=== PATIENT | female | born 1940 | race Caucasian/White ===

== ENCOUNTER 2017-05-29 15:52 | Emergency (ER) | payer OTHER, MEDICAID ==
[~2017-05-29 15:52] MED LIST: ALENDRONAT70 MG/75 M PO; AMLODIPINE BESYL5 M1 PO; AMLODIPINE-BENAZEPRI PO; CALCIUM PO; CARVEDILOL6.25 M1 PO; COR6 PO; DIT5 PO; ECO81 PO; EFF75 PO; EST1 PO; FENOFIBRATE PO; LOP600 PO; MAPAP PO; NIT0.4 SL; PLA75 PO; PRO40 PO; RITE AID MELATON1 MG PO; SIMVASTATIN PO; SPECTRAVITE; SYN1 PO; SYNTHROID0.075 MG; [UNRECOGNIZED DRUG - OTHER] PO
[2017-05-29 16:50] LABS: CALCIUM 9.8 mg/dL (8.5-10.1); CARBON DIOXIDE 29.3 mmol/L (21-32); CHLORIDE SERUM 104 mmol/L (98-107); CREATININE SERUM 0.8 mg/dL (0.6-1.0); GLUCOSE SERUM 107 mg/dL (74-106); POTASSIUM SERUM 4.1 mmol/L (3.5-5.1); SODIUM SERUM 140 mmol/L (136-145)
[2017-05-29 18:13] VITALS: BP 118/75
== END 2017-05-29 18:13 | disposition home or self-care (01) ==
LOC: ED 15:52
PROVIDERS: Emergency Medicine
DX: K29.00 Acute gastritis without bleeding (principal); I10 Essential (primary) hypertension; M19.90 Unspecified osteoarthritis, unspecified site; Z79.899 Other long term (current) drug therapy
CPT/HCPCS: 36415; Q0162

== ENCOUNTER 2018-07-28 12:34 | Inpatient (IN) | payer OTHER, MEDICAID ==
[~2018-07-28] VITALS: Ht 152.4 cm; Wt 78.0 kg
[~2018-07-28 12:34] MED LIST changes: +ATORVASTATIN CA40 M1 PO; +BLACK COHOSH540 M1 PO; +CLOPIDOGREL75 M1 PO; +CVS CALCIUM PO; +LAC PO; +LEVAQUIN250 M1 PO; +LOSARTAN POTASS25 M1 PO; +MASON NATURAL1000 IU PO; +MECLIZINE HCL12.5 MG PO; +TRAMADOL HCL50 MG PO; +ZESTRIL5 MG PO
[2018-07-28 12:35] VITALS: Ht 152.4 cm; Wt 78.0 kg
[2018-07-28 14:10] LABS: BASOPHIL % 0.5 % (0-2); PLATELET COUNT 319 x10^3mcL (130-400); RED CELL DISTRIBUTION WIDTH 14.2 % (11.5-14.5)
[2018-07-28 14:25] LABS: CALCIUM 9.5 mg/dL (8.5-10.1); CARBON DIOXIDE 26.8 mmol/L (21-32); CHLORIDE SERUM 103 mmol/L (98-107); CREATININE SERUM 1.3 mg/dL (0.6-1.0); GLUCOSE SERUM 108 mg/dL (74-106); POTASSIUM SERUM 4.6 mmol/L (3.5-5.1); SODIUM SERUM 137 mmol/L (136-145)
[2018-07-28 14:30] LABS: ALKALINE PHOSPHATASE 64 U/L (46-116); ALT/SGPT 21 U/L (14-59); AST/SGOT 16 U/L (15-37); BILIRUBIN TOTAL 0.7 mg/dL (0.20-1.00); TOTAL PROTEIN, SERUM 6.6 g/dL (6.4-8.2)
[2018-07-28 14:31] LABS: ALBUMIN 2.7 g/dL (3.4-5.0)
[2018-07-28 16:56] VITALS: BP 128/51
[2018-07-28 17:32] VITALS: BP 128/57
[2018-07-28 17:33] VITALS: BP 118/46
[2018-07-28 19:56] LABS: microscopic required? NO
[2018-07-28 20:00] LABS: UA SPECIFIC GRAVITY <=1.005 (1.005-1.035); urine erythrocyte NEGATIVE (NEGATIVE)
[2018-07-28 20:34] VITALS: BP 126/52
[2018-07-29 05:56] VITALS: BP 136/65
[2018-07-29 07:07] LABS: ALBUMIN 2.6 g/dL (3.4-5.0); ALKALINE PHOSPHATASE 63 U/L (46-116); ALT/SGPT 22 U/L (14-59); AST/SGOT 15 U/L (15-37); BILIRUBIN TOTAL 0.3 mg/dL (0.20-1.00); CALCIUM 9.4 mg/dL (8.5-10.1); CARBON DIOXIDE 24.7 mmol/L (21-32); CHLORIDE SERUM 105 mmol/L (98-107); GLUCOSE SERUM 164 mg/dL (74-106); SODIUM SERUM 137 mmol/L (136-145); TOTAL PROTEIN, SERUM 6.8 g/dL (6.4-8.2)
[2018-07-29 09:45] VITALS: BP 157/61
[2018-07-29 12:00] VITALS: BP 133/61
[2018-07-29 16:15] VITALS: BP 147/57
[2018-07-29 20:52] VITALS: BP 148/78
[2018-07-30 05:56] VITALS: BP 156/68
[2018-07-30 07:07] LABS: BASOPHIL % 0 % (0-2); PLATELET COUNT 315 x10^3mcL (130-400); RED CELL DISTRIBUTION WIDTH 14.3 % (11.5-14.5)
[2018-07-30 07:27] LABS: ALBUMIN 2.7 g/dL (3.4-5.0); ALKALINE PHOSPHATASE 64 U/L (46-116); ALT/SGPT 25 U/L (14-59); AST/SGOT 17 U/L (15-37); BILIRUBIN TOTAL 0.22 mg/dL (0.20-1.00); CALCIUM 9.4 mg/dL (8.5-10.1); CARBON DIOXIDE 25.7 mmol/L (21-32); CHLORIDE SERUM 106 mmol/L (98-107); CREATININE SERUM 0.9 mg/dL (0.6-1.0); GLUCOSE SERUM 129 mg/dL (74-106); POTASSIUM SERUM 3.9 mmol/L (3.5-5.1); SODIUM SERUM 140 mmol/L (136-145); TOTAL PROTEIN, SERUM 6.8 g/dL (6.4-8.2)
[2018-07-30 09:05] VITALS: BP 155/76
[2018-07-30 12:10] VITALS: BP 151/65
[2018-07-30 17:00] VITALS: BP 141/59
[2018-07-30 21:35] VITALS: BP 136/64
[2018-07-31 05:59] VITALS: BP 171/71
[2018-07-31 07:12] LABS: BASOPHIL % 0 % (0-2); PLATELET COUNT 289 x10^3mcL (130-400); RED CELL DISTRIBUTION WIDTH 14.7 % (11.5-14.5)
[2018-07-31 07:19] LABS: ALKALINE PHOSPHATASE 53 U/L (46-116); ALT/SGPT 19 U/L (14-59); AST/SGOT 10 U/L (15-37); CALCIUM 8.9 mg/dL (8.5-10.1); CARBON DIOXIDE 21.7 mmol/L (21-32); CHLORIDE SERUM 108 mmol/L (98-107); CREATININE SERUM 0.9 mg/dL (0.6-1.0); GLUCOSE SERUM 132 mg/dL (74-106); MAGNESIUM 2.6 mg/dL (1.8-2.4); SODIUM SERUM 139 mmol/L (136-145); TOTAL PROTEIN, SERUM 6.3 g/dL (6.4-8.2)
[2018-07-31 07:21] LABS: ALBUMIN 2.4 g/dL (3.4-5.0)
[2018-07-31 07:23] LABS: POTASSIUM SERUM 4.3 mmol/L (3.5-5.1)
[2018-07-31 08:41] VITALS: BP 154/77
[2018-07-31 12:04] VITALS: BP 146/63
[2018-07-31 16:35] VITALS: BP 161/64
[2018-07-31 18:35] VITALS: BP 158/64
== END 2018-07-31 18:54 | disposition home or self-care (01) | DRG 202 ==
LOC: ED 12:34 → DU 15:52
PROVIDERS: Emergency Medicine; Internal Medicine Pulmonary Disease; ADMIT Internal Medicine
DX: J20.9 Acute bronchitis, unspecified (principal); J45.901 Unspecified asthma with (acute) exacerbation; E78.5 Hyperlipidemia, unspecified; I11.9 Hypertensive heart disease without heart failure; I25.10 Atherosclerotic heart disease of native coronary artery without angina pectoris; M19.90 Unspecified osteoarthritis, unspecified site; Z95.5 Presence of coronary angioplasty implant and graft
CPT/HCPCS: 82962; 87804; G0378; J0456; J1644; J2920; J2930; J7050; J7613; J7620; Q0092

== ENCOUNTER 2018-08-07 13:53 | Observation (INO) | payer OTHER, MEDICAID ==
[~2018-08-07] VITALS: Ht 152.4 cm; Wt 77.1 kg
[2018-08-07 14:03] VITALS: Ht 152.4 cm; Wt 77.1 kg
--- NOTE | 2018-08-07 14:07 | NUR ---
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
[2018-08-07 14:40] LABS: BASOPHIL % 0.3 % (0-2); PLATELET COUNT 266 x10^3mcL (130-400); RED CELL DISTRIBUTION WIDTH 14.4 % (11.5-14.5)
[2018-08-07 14:56] LABS: CALCIUM 8.9 mg/dL (8.5-10.1); CARBON DIOXIDE 28.6 mmol/L (21-32); CHLORIDE SERUM 105 mmol/L (98-107); CREATININE SERUM 1.2 mg/dL (0.6-1.0); GLUCOSE SERUM 112 mg/dL (74-106); POTASSIUM SERUM 3.7 mmol/L (3.5-5.1); SODIUM SERUM 139 mmol/L (136-145)
[2018-08-07 14:59] LABS: ALKALINE PHOSPHATASE 53 U/L (46-116); ALT/SGPT 30 U/L (14-59); AMYLASE 49 U/L (25-115); AST/SGOT 14 U/L (15-37); BILIRUBIN TOTAL 0.4 mg/dL (0.20-1.00); CHOLESTEROL 155 mg/dL (<200); LIPASE 124 IU/L (73-393)
[2018-08-07 15:00] LABS: ALBUMIN 2.4 g/dL (3.4-5.0); HDL CHOLESTEROL 73 mg/dL (40-60); TOTAL PROTEIN, SERUM 5.7 g/dL (6.4-8.2)
[2018-08-07 15:37] LABS: T4(THYROXINE) 15.7 ug/dL (4.7-13.3)
[2018-08-07] MEDS ORDERED: ASPIR 8181 MG PO (16:04)
[2018-08-07] MEDS ORDERED: CARVEDILOL12.5 M1 PO (16:04)
[2018-08-07] MEDS ORDERED: ATORVASTATIN CA40 M1 PO (16:04)
[2018-08-07] MEDS ORDERED: LOSARTAN POTASS25 M1 PO (16:05)
[2018-08-07] MEDS ORDERED: ZESTRIL5 MG PO (16:05)
[2018-08-07] MEDS ORDERED: CLOPIDOGREL75 M1 PO (16:05)
[2018-08-07] MEDS ORDERED: OXYBUTYNIN CHLOR5 M2 PO (16:05)
[2018-08-07] MEDS ORDERED: VENLAFAXINE HYD75 M1 PO (16:06)
[2018-08-07] MEDS ORDERED: PANTOPRAZOLE SO40 M1 PO (16:06)
[2018-08-07] MEDS ORDERED: TRAMADOL HCL50 MG PO (16:06)
[2018-08-07] MEDS ORDERED: ALENDRONATE SOD70 M2 PO (16:07)
[2018-08-07] MEDS ORDERED: MECLIZINE HYD12.5 MG PO (16:07)
[2018-08-07] MEDS ORDERED: LAC PO (16:07)
--- NOTE | 2018-08-07 16:14 | NUR ---
PT ADMIT TO TELE ROOM 220B GAVE REPORT TO PEDRO
--- NOTE | 2018-08-07 16:24 | NUR ---
PLEASE ENTER FULL NAMES OF [employer]/RN Patient data collected by (INS[employer]): KATERYNA SOSA Assessment reviewed and completed by (RN): MELODY AMARO
--- NOTE | 2018-08-07 17:40 | NUR ---
RECEIVED PT VIA [employer] FROM E/D, ACCOMPANIED BY RN AND TRANSPORTER. PT A/A/O X 4, CALM, COOPERATIVE, CURRENTLY HAS DIZZINESS. ON TELE # 34, SR W/ ELEVATED T-WAVES, CURRENTLY WITH CHEST PRESSURE 6/10, MADE WORSE WITH MOVEMENT/AMBULATION, MILD RELIEF FROM MEDICATIONS. NO RESPIRATORY DISTRESS NOTED. ABD SOFT, ROUND, NON-TENDER, NORMOACTIVE BOWEL SOUNDS X 4 QUADS, LAST BM 08/07/18, DIARRHEA. USES CANE AT HOME. IV SITE LH 20G, CDI. ORIENTED PT TO ROOM, BED CONTROLS, CALL LIGHT SYSTEM. SIDE RAILS UP X 2, BED IN LOW POSIITION. WILL ENDORSE TO VINCE VASQUEZ.
[2018-08-07 18:11] VITALS: BP 116/55
--- NOTE | 2018-08-07 18:22 | NUR ---
RECEIVED PT FROM ED BY JCARLOS. PT AMBULATORY. PT A/O X 4. PT REPORTED CHEST PAIN 4/10, RESOLVED A LOT AFTER ASPIRIN AND NITRO PATCH GIVEN. PT BREATHING ON RA, EVEN, UNLABORED. RESOURCE NURSE AT BED SIDE PROCESSING ADMISSION. IV SITE PATENT, INTACT, WILL RESUME IVF PER ORDER.
--- NOTE | 2018-08-07 20:02 | NUR ---
RECEIVED PATIENT IN BED AWAKE, ALERT AND ORIENTED. BREATHING EASY AND NONLABOR SATTING AT 98% RA WITH CLEAR BS ON AUSCULTATION. TELE# 24 SR WITH ELEVATEDT WAVE ON MONITOR, DENIES CHESTPAIN AT THIS TIME. ABDOMEN ROUND, SOFT AND NON TENDER WITH BM TODAY LOOSE IN MODERATE AMOUNT PER PT. IV TO LH INTACT AND HEPLOCK, FLUSHED WITH NS. WILL CONTINUE TO MONITOR. CALL LIGHT WITHIN REACH.
[2018-08-07 21:05] VITALS: BP 101/49
[2018-08-07 21:37] VITALS: BP 118/54
--- NOTE | 2018-08-07 21:52 | NUR ---
VOIDED, URINE SPECIMEN COLLECTED FOR UA ND UDS, SENT TO LAB.
[2018-08-07 21:59] LABS: microscopic required? NO
[2018-08-07 22:13] LABS: UA SPECIFIC GRAVITY 1.015 (1.005-1.035); urine erythrocyte NEGATIVE (NEGATIVE)
[2018-08-07 22:21] LABS: AMPHETAMINE QUAL UR NONE DETECTED (See below)
--- NOTE | 2018-08-07 22:37 | NUR ---
C/O HEADACHE TYLENOL 650MG PO GIVEN PRESCRIBED. WILL CONTINUE TO MONITOR.
--- NOTE | 2018-08-07 23:52 | NUR ---
RELEIF NOTED PER PATIENT AFTER TYLENOL WAS GIVEN. WILL CONTINUE TO MONITOR.
--- NOTE | 2018-08-08 01:57 | NUR ---
APPEARS SLEEPING AT THIS TIME, NO INDICATION OF PAIN AND DISCOMFORT NOTED.
--- NOTE | 2018-08-08 05:14 | NUR ---
SLEPT AT LONG INTERVALS C/O HEADACHE X1 AND MEDICATED PRESCRIBED. ALL NEEDS ATTENDED.
[2018-08-08 05:26] VITALS: BP 146/70
[2018-08-08 06:26] LABS: BASOPHIL % 0.5 % (0-2); PLATELET COUNT 241 x10^3mcL (130-400); RED CELL DISTRIBUTION WIDTH 14.2 % (11.5-14.5)
[2018-08-08 06:39] LABS: CALCIUM 9.3 mg/dL (8.5-10.1); CARBON DIOXIDE 27.7 mmol/L (21-32); CHLORIDE SERUM 104 mmol/L (98-107); CREATININE SERUM 1.1 mg/dL (0.6-1.0); GLUCOSE SERUM 92 mg/dL (74-106); POTASSIUM SERUM 4.2 mmol/L (3.5-5.1); SODIUM SERUM 138 mmol/L (136-145)
--- NOTE | 2018-08-08 07:15 | NUR ---
PT SEEN REST ON BED, NO COMPLAIN OF PAIN AT THIS TIME. PT BREATHING ON RA, EVEN, UNLABORED. IV SITE SALINE LOCK PER ORDER.
--- NOTE | 2018-08-08 07:43 | NUR ---
DR. SANTOS TALKED TO PT AND SCHEDULED STRESS TEST. PT AWARE AND NPO AT THIS TIME. PT NO COMPLAIN OF CHEST PAIN, BOWER IS RESOLVED WELL BY TYLENOL. WILL CONTINUE TO MONITOR.
[2018-08-08 08:57] VITALS: BP 148/65
--- NOTE | 2018-08-08 12:31 | NUR ---
PT REPORTED A COUPLE OF SHARP LEFT CHEST PAIN, LAST FOR SECOND EACH TIME, 10/04. CALLED RANGE CONSERVATIONIST AND CONFIRMED NO SPECIFIC RHYTHM CHANGE DURING THE PERIOD. PT IS SCHEDULED FOR LEXISCAN AT 1315PM. WILL CONTINUE TO MONITOR.
--- NOTE | 2018-08-08 12:55 | NUR ---
PT WAS TAKEN FOR STRESS TEST.
--- NOTE | 2018-08-08 13:30 | NUR ---
ECHO PENDING PT. DOWN WITH NUCMED
--- NOTE | 2018-08-08 15:04 | NUR ---
PT BACK FROM STRESS TEST. PT REPORTED FEELING A LITTLE ANXIOUS, BUT NOT REQUEST FOR ANY MED AT THIS TIME. WILL CONTINUE TO ELISABETH.
[2018-08-08 17:31] VITALS: BP 133/65
--- NOTE | 2018-08-08 18:59 | NUR ---
INFORMED DR ALMONTE ABOUT LEXISCAN RESULT. PER DR ALMONTE OK TO DISCHARGE PATIENT HOME TODAY. ATTENDING NURSE PEDRO MORALES AWARE.
[2018-08-08 19:28] VITALS: BP 133/65
--- NOTE | 2018-08-08 19:38 | NUR ---
PT'S STRESS TEST DONE. DR. IBANEZ AWARE ABOUT PT'S TEST RESULT AND CONFIRM IT IS OK TO DISCHARGE PT HOME. PT AGREE WITH DISCHARGE PLAN. CAB VOUCHER WILL BE PROVIDED AT DISCHARGE. ENDORSE PT'S DISCHARGE TO RECEIVING NURSE TO COMPLETE. PT NO COMPLAIN OF CP AT THIS TIME. PT REST ON BED AND WAITING FOR DISCHARGE.
--- NOTE | 2018-08-08 20:09 | NUR ---
PATIENT DISCHARGED WITH ALL PERSONAL BELONGINGS WITH PATIENT. DISCHARGE INSTRUCTIONS PROVIDED AND GIVEN TO PATIENT. PATIENT UNDERSTANDS THAT SHE WILL FOLLOW UP WITH HER PRIMARY CARE PROVIDER AND HER PLASTIC PARTS FABRICATOR AFTER DISCHARGE. PATIENT DENIES ANY PAIN, NO PALPITATIONS, DIZZINESS, OR HEADACHE AT THIS TIME. ID BAND REMOVED, TELE MONITOR REMOVED AND IV TO LEFT HAND 22 GUAGE REMOVED. IV CATHETER INTACT, PATIENT TOLERATED WELL.
--- NOTE | 2018-08-09 07:28 | NUR ---
ECHOCARDIOGRAM NOT DONE-DISCHARGED
== END 2018-08-08 20:22 | disposition home or self-care (01) | DRG 313 ==
LOC: ED 13:53 → DU 15:42
PROVIDERS: Emergency Medicine; ADMIT Internal Medicine
DX: R07.89 Other chest pain (principal); E46 Unspecified protein-calorie malnutrition; I12.9 Hypertensive chronic kidney disease with stage 1 through stage 4 chronic kidney disease, or unspecified chronic kidney disease; I25.10 Atherosclerotic heart disease of native coronary artery without angina pectoris; N18.2 Chronic kidney disease, stage 2 (mild); E03.9 Hypothyroidism, unspecified; E78.00 Pure hypercholesterolemia, unspecified; E78.5 Hyperlipidemia, unspecified; I25.2 Old myocardial infarction; E66.9 Obesity, unspecified; Z68.33 Body mass index [BMI] 33.0-33.9, adult; Z95.5 Presence of coronary angioplasty implant and graft; Z87.891 Personal history of nicotine dependence; Z79.02 Long term (current) use of antithrombotics/antiplatelets; Z79.82 Long term (current) use of aspirin
CPT/HCPCS: 83880; A9500; G0378; J1644; J2785; Q0092

== ENCOUNTER 2019-12-23 17:19 | Observation (INO) | payer OTHER, MEDICAID ==
[~2019-12-23] VITALS: Ht 152.4 cm; Wt 76.3 kg
[~2019-12-23 17:19] MED LIST changes: +ALENDRONATE SOD70 M2 PO; +ASPIR 8181 MG PO; +CARVEDILOL12.5 M1 PO; +MECLIZINE HYD12.5 MG PO; +OXYBUTYNIN CHLOR5 M2 PO; +PANTOPRAZOLE SO40 M1 PO; +VENLAFAXINE HYD75 M1 PO
[2019-12-23 17:28] VITALS: Ht 152.4 cm; Wt 76.3 kg
[2019-12-23 18:21] LABS: BASOPHIL % 0.4 % (0-2); PLATELET COUNT 231 x10^3mcL (130-400); RED CELL DISTRIBUTION WIDTH 13.8 % (11.5-14.5)
[2019-12-23 18:49] LABS: CALCIUM 9.1 mg/dL (8.5-10.1); CARBON DIOXIDE 23.6 mmol/L (21-32); CHLORIDE SERUM 106 mmol/L (98-107); CREATININE SERUM 1.1 mg/dL (0.6-1.0); GLUCOSE SERUM 108 mg/dL (74-106); POTASSIUM SERUM 4.3 mmol/L (3.5-5.1); SODIUM SERUM 140 mmol/L (136-145)
[2019-12-23 19:00] LABS: ALBUMIN 3.4 g/dL (3.4-5.0); ALKALINE PHOSPHATASE 62 U/L (46-116); ALT/SGPT 22 U/L (14-59); AST/SGOT 20 U/L (15-37); BILIRUBIN TOTAL 0.6 mg/dL (0.20-1.00)
[2019-12-23 22:27] VITALS: BP 136/72
[2019-12-24] VITALS (7 sets, daily range): BP systolic 135–146; BP diastolic 62–74
[2019-12-24 06:59] LABS: BASOPHIL % 0.6 % (0-2); PLATELET COUNT 235 x10^3mcL (130-400); RED CELL DISTRIBUTION WIDTH 14.1 % (11.5-14.5)
[2019-12-24 07:47] LABS: ALKALINE PHOSPHATASE 59 U/L (46-116); ALT/SGPT 20 U/L (14-59); AST/SGOT 20 U/L (15-37); BILIRUBIN TOTAL 0.6 mg/dL (0.20-1.00); CALCIUM 9.2 mg/dL (8.5-10.1); CARBON DIOXIDE 23.9 mmol/L (21-32); CHLORIDE SERUM 107 mmol/L (98-107); CREATININE SERUM 1.1 mg/dL (0.6-1.0); GLUCOSE SERUM 83 mg/dL (74-106); LIPASE 77 IU/L (73-393); SODIUM SERUM 142 mmol/L (136-145)
[2019-12-24 07:57] LABS: ALBUMIN 3.1 g/dL (3.4-5.0); TOTAL PROTEIN, SERUM 6.1 g/dL (6.4-8.2)
== END 2019-12-24 18:18 | disposition home or self-care (01) ==
LOC: ED 17:19 → DU 21:23
PROVIDERS: Emergency Medicine; ADMIT Internal Medicine Nephrology; ATTEND Internal Medicine Nephrology
DX: G45.9 Transient cerebral ischemic attack, unspecified (principal); R42 Dizziness and giddiness; R20.2 Paresthesia of skin; R11.0 Nausea; I25.10 Atherosclerotic heart disease of native coronary artery without angina pectoris; I10 Essential (primary) hypertension; E78.5 Hyperlipidemia, unspecified
CPT/HCPCS: 82962; 83880; G0378; J2405; Q0092